=== PATIENT | female | born 1975 | race African-American/Black ===

== ENCOUNTER 2016-12-04 13:44 | Emergency (ER) | payer SELFPAY ==
[2016-12-04 14:15] VITALS: BP 121/75
== END 2016-12-04 22:15 | disposition left against medical advice (07) ==
LOC: ED 13:44
DX: Z00.8 Encounter for other general examination (principal); W19.XXXA Unspecified fall, initial encounter; Y93.89 Activity, other specified; Y99.9 Unspecified external cause status; Y92.89 Other specified places as the place of occurrence of the external cause; Z53.21 Procedure and treatment not carried out due to patient leaving prior to being seen by health care provider

== ENCOUNTER 2020-05-06 00:41 | Emergency (ER) | payer SELFPAY | END 2020-05-06 02:00 | disposition left against medical advice (07) | LOC: ED 00:41 | DX: R10.9 Unspecified abdominal pain (principal); Z53.21 Procedure and treatment not carried out due to patient leaving prior to being seen by health care provider ==